=== PATIENT | female | born 1940 | race Caucasian/White ===

== ENCOUNTER 2017-03-07 20:26 | Emergency (ER) | payer MEDICAID, MEDICARE ==
[~2017-03-07] VITALS: Ht 170.2 cm; Wt 86.4 kg
[~2017-03-07 20:26] MED LIST: ASPI81 PO; DSS100 PO; HALO1 PO; HYDR25TA PO; LISI-662 PO; METO50 PO; SIMV-261 PO
[2017-03-07] MEDS ORDERED: ACETAMINOPHEN 325 MG TABLET PO ONE (22:15)
[2017-03-08 00:29] VITALS: BP 146/89
== END 2017-03-08 00:28 | disposition home or self-care (01) ==
LOC: EMS 20:29
DX: S70.01XA Contusion of right hip, initial encounter (principal); W18.30XA Fall on same level, unspecified, initial encounter; Y93.89 Activity, other specified; Y92.89 Other specified places as the place of occurrence of the external cause; Y99.8 Other external cause status
CPT/HCPCS: 73502; 99284

== ENCOUNTER 2017-03-23 17:49 | Inpatient (IN) | payer MEDICARE ==
[2017-03-23] MEDS ORDERED: MAGNESIUM SULFATE 2 GM in DEXTROSE 5%-WATER 50 ML IV PRN (18:45)
[2017-03-23] MEDS ORDERED: POTASSIUM CHL 10 MEQ/WATER 50 ML IV PRN (18:45)
[2017-03-23] MEDS ORDERED: MAGNESIUM OXIDE 400 MG TABLET PO PRN (18:45)
[2017-03-23] MEDS ORDERED: MAGNESIUM SULFATE 4 GM/WATER 100 ML IV PRN (18:45)
[2017-03-23] MEDS ORDERED: POTASSIUM CHLORIDE 20 MEQ ER TABLET PO PRN (18:45)
[2017-03-23 18:49] VITALS: BP 178/134
[2017-03-23 19:51] VITALS: BP 185/93
[2017-03-23] MEDS: MEMANTINE HCL 5 MG TABLET PO SCH (20:04)
[2017-03-23] MEDS: DIVALPROEX SODIUM 125 MG DR TABLET PO SCH (20:04)
[2017-03-23] MEDS: METOPROLOL TARTRATE 50 MG TABLET PO SCH (20:05)
[2017-03-23] MEDS: IBUPROFEN 800 MG TABLET PO SCH (20:05)
[2017-03-23] MEDS: DOCUSATE SODIUM 100 MG CAPSULE PO SCH (20:05)
[2017-03-23 20:29] LABS: BASOPHILS % (AUTO) 0.5 % (0.0-2.0); EOSINOPHILS % (AUTO) 2.6 % (1.0-6.0); HEMATOCRIT 44.3 % (36-46); HEMOGLOBIN 14.9 g/dL (12.0-16.0); LYMPHOCYTES # (AUTO) 1.7 K/uL (1.0-4.8); LYMPHOCYTES % (AUTO) 19.8 % (22.0-44.0); MEAN CORPUSCULAR HEMOGLOBIN 30.6 pg (26.0-34.0); MEAN CORPUSCULAR HGB CONC 33.6 G/dL (31.0-37.0); MEAN CORPUSCULAR VOLUME 91 fL (80-100); MONOCYTES # (AUTO) 0.6 K/uL (0.1-1.0); MONOCYTES % (AUTO) 7.7 % (2.0-9.0); NEUTROPHILS # (AUTO) 5.8 K/uL (1.8-7.7); NEUTROPHILS % (AUTO) 69.4 % (40.0-70.0); PLATELET COUNT (AUTO) 225 K/uL (150-450); RED BLOOD CELL COUNT(AUTO) 4.85 MIL/uL (4.00-5.20); RED CELL DISTRIBUTION WIDTH 12.9 % (11.5-14.5); WHITE BLOOD COUNT (AUTO) 8.4 K/uL (4.5-11.0)
[2017-03-23 20:41] LABS: ALBUMIN 3.4 g/dL (3.4-5.0); ANION GAP 8 mmol/L (8-16); CALCIUM, TOTAL 9.2 mg/dL (8.8-10.5); CARBON DIOXIDE 30 mmol/L (22-29); CHLORIDE 104 mmol/L (98-107); CREATININE 1.14 mg/dL (0.60-1.30); GLOMERULAR FILTR. RATE CALC 46 mL/min (>60); PHOSPHORUS 3.4 mg/dL (2.5-4.9); POTASSIUM 3.8 mmol/L (3.5-5.1); SODIUM SERUM 142 mmol/L (136-145); THYROID STIMULATING HORMONE 0.51 uIU/mL (0.36-3.74); UREA NITROGEN, BLOOD 18 mg/dL (7-18)
[2017-03-23 21:15] VITALS: BP 166/92
[2017-03-23 21:20] LABS: CREATINE KINASE MB < 0.5 ng/mL (0-5)
[2017-03-23] MEDS: LISINOPRIL 20 MG TABLET PO SCH (22:44)
[2017-03-23 23:01] VITALS: BP 153/87
[2017-03-24 01:52] LABS: APPEARANCE,URINE CLOUDY (CLEAR); GLUCOSE, URINE (UA) NEGATIVE (NEGATIVE); KETONES,URINE NEGATIVE (NEGATIVE); LEUKOCYTE ESTERASE ,URINE TRACE (NEGATIVE); OCCULT BLOOD,URINE NEGATIVE (NEGATIVE); PROTEIN,URINE NEGATIVE (NEGATIVE)
[2017-03-24 02:39] LABS: RBC,URINE 0-2 /HPF (0-2)
[2017-03-24 02:40] LABS: AMORPHOUS SEDIMENT,UR Few /LPF (None Seen); SQUAMOUS EPITHELIAL CELL,UR Rare /LPF (None Seen)
[2017-03-24 04:00] VITALS: BP 152/95
[2017-03-24 07:28] VITALS: BP 140/84
[2017-03-24] MEDS: IBUPROFEN 800 MG TABLET PO SCH ×3 (08:28→20:21)
[2017-03-24] MEDS: HYDROCHLOROTHIAZIDE 25 MG TABLET PO SCH (08:28)
[2017-03-24] MEDS: METOPROLOL TARTRATE 50 MG TABLET PO SCH ×2 (08:29→20:21)
[2017-03-24] MEDS: PANTOPRAZOLE SODIUM 40 MG DR TABLET PO SCH (08:29)
[2017-03-24] MEDS: ATORVASTATIN CALCIUM 40 MG TABLET PO SCH (08:29)
[2017-03-24] MEDS: TOLTERODINE TARTRATE 2 MG ER CAPSULE PO SCH (08:29)
[2017-03-24] MEDS: LISINOPRIL 20 MG TABLET PO SCH (08:29)
[2017-03-24] MEDS: ASPIRIN 81 MG CHEWABLE TABLET PO SCH (08:30)
[2017-03-24] MEDS: CHOLECALCIFEROL (VIT D3) 1,000 UNITS TABLET PO SCH (08:30)
[2017-03-24] MEDS: DOCUSATE SODIUM 100 MG CAPSULE PO SCH ×2 (08:30→20:21)
[2017-03-24] MEDS: MEMANTINE HCL 5 MG TABLET PO SCH ×2 (08:30→20:20)
[2017-03-24] MEDS ORDERED: LISINOPRIL 20 MG TABLET PO SCH (09:00)
[2017-03-24] MEDS ORDERED: CHOLECALCIFEROL (VIT D3) 1,000 UNITS TABLET PO SCH (09:00)
[2017-03-24] MEDS: CALCIUM CARBONATE 500 MG CHEWABLE TABLET CHEW SCH ×2 (10:04→20:20)
[2017-03-24 11:48] VITALS: BP 120/74
[2017-03-24 15:10] VITALS: BP 122/79
[2017-03-24 19:55] VITALS: BP 105/60
[2017-03-24] MEDS: DIVALPROEX SODIUM 125 MG DR TABLET PO SCH (20:20)
[2017-03-25] VITALS: BP 135/87
[2017-03-25 05:10] VITALS: BP 140/71
[2017-03-25] MEDS ORDERED: ALENDRONATE SODIUM 70 MG TABLET PO SCH (06:30)
[2017-03-25 07:40] VITALS: BP 138/72
[2017-03-25] MEDS: DOCUSATE SODIUM 100 MG CAPSULE PO SCH ×2 (08:24→20:24)
[2017-03-25] MEDS: PANTOPRAZOLE SODIUM 40 MG DR TABLET PO SCH (08:24)
[2017-03-25] MEDS: IBUPROFEN 800 MG TABLET PO SCH ×3 (08:24→20:24)
[2017-03-25] MEDS: CALCIUM CARBONATE 500 MG CHEWABLE TABLET CHEW SCH ×2 (08:25→20:23)
[2017-03-25] MEDS: HYDROCHLOROTHIAZIDE 25 MG TABLET PO SCH (08:25)
[2017-03-25] MEDS: TOLTERODINE TARTRATE 2 MG ER CAPSULE PO SCH (08:25)
[2017-03-25] MEDS: ASPIRIN 81 MG CHEWABLE TABLET PO SCH (08:25)
[2017-03-25] MEDS: LISINOPRIL 20 MG TABLET PO SCH (08:26)
[2017-03-25] MEDS: CHOLECALCIFEROL (VIT D3) 1,000 UNITS TABLET PO SCH (08:26)
[2017-03-25] MEDS: ATORVASTATIN CALCIUM 40 MG TABLET PO SCH (08:26)
[2017-03-25] MEDS: MEMANTINE HCL 5 MG TABLET PO SCH ×2 (08:27→20:24)
[2017-03-25] MEDS: METOPROLOL TARTRATE 50 MG TABLET PO SCH ×2 (08:42→20:24)
[2017-03-25 12:29] VITALS: BP 142/84
[2017-03-25 19:44] VITALS: BP 155/95
[2017-03-25] MEDS: DIVALPROEX SODIUM 125 MG DR TABLET PO SCH (20:23)
[2017-03-25 21:14] LABS: APPEARANCE,URINE CLOUDY (CLEAR); GLUCOSE, URINE (UA) NEGATIVE (NEGATIVE); KETONES,URINE NEGATIVE (NEGATIVE); LEUKOCYTE ESTERASE ,URINE TRACE (NEGATIVE); OCCULT BLOOD,URINE NEGATIVE (NEGATIVE); PH,URINE 5.5 (5.0-8.0); PROTEIN,URINE NEGATIVE (NEGATIVE)
[2017-03-25 21:31] LABS: SQUAMOUS EPITHELIAL CELL,UR Few /LPF (None Seen)
[2017-03-25 21:33] LABS: RBC,URINE 0-2 /HPF (0-2)
[2017-03-25 23:40] VITALS: BP 157/90
[2017-03-26 04:55] VITALS: BP 135/78
[2017-03-26 07:43] VITALS: BP 137/82
[2017-03-26 08:03] VITALS: BP 158/87
[2017-03-26] MEDS: DOCUSATE SODIUM 100 MG CAPSULE PO SCH (08:42)
[2017-03-26] MEDS: LISINOPRIL 20 MG TABLET PO SCH (08:43)
[2017-03-26] MEDS: MEMANTINE HCL 5 MG TABLET PO SCH (08:43)
[2017-03-26] MEDS: CALCIUM CARBONATE 500 MG CHEWABLE TABLET CHEW SCH (08:43)
[2017-03-26] MEDS: HYDROCHLOROTHIAZIDE 25 MG TABLET PO SCH (08:43)
[2017-03-26] MEDS: CHOLECALCIFEROL (VIT D3) 1,000 UNITS TABLET PO SCH (08:44)
[2017-03-26] MEDS: ASPIRIN 81 MG CHEWABLE TABLET PO SCH (08:44)
[2017-03-26] MEDS: METOPROLOL TARTRATE 50 MG TABLET PO SCH (08:44)
[2017-03-26] MEDS: ATORVASTATIN CALCIUM 40 MG TABLET PO SCH (08:44)
[2017-03-26] MEDS: TOLTERODINE TARTRATE 2 MG ER CAPSULE PO SCH (08:44)
[2017-03-26] MEDS: IBUPROFEN 800 MG TABLET PO SCH ×2 (08:45→15:54)
[2017-03-26] MEDS: PANTOPRAZOLE SODIUM 40 MG DR TABLET PO SCH (08:47)
[2017-03-26 11:42] VITALS: BP 140/85
[2017-03-26 15:46] VITALS: BP 131/74
== END 2017-03-26 17:32 | DRG 305 ==
LOC: 6N 18:10
PROVIDERS: ADMIT Internal Medicine; ATTEND Internal Medicine
DX: I10 Essential (primary) hypertension (principal); F03.91 Unspecified dementia, unspecified severity, with behavioral disturbance; R26.81 Unsteadiness on feet; E78.5 Hyperlipidemia, unspecified; M15.9 Polyosteoarthritis, unspecified; M81.0 Age-related osteoporosis without current pathological fracture; R29.6 Repeated falls; Z79.82 Long term (current) use of aspirin; Z79.899 Other long term (current) drug therapy
CPT/HCPCS: 70450; 83735; 84100; 84443; 87086; 97162; 97165; 97530

== ENCOUNTER 2018-05-09 19:39 | Inpatient (IN) | payer MEDICARE ==
[2018-05-09 20:10] VITALS: BP 138/76
[2018-05-09] MEDS: DOCUSATE SODIUM 100 MG CAPSULE PO SCH (21:19)
[2018-05-09] MEDS: SIMVASTATIN 40 MG TABLET PO SCH (21:19)
[2018-05-09] MEDS: METOPROLOL TARTRATE 50 MG TABLET PO SCH (21:19)
[2018-05-09] MEDS ORDERED: ONDANSETRON HCL 4 MG/2 ML VIAL IVP PRN (22:45)
[2018-05-09] MEDS ORDERED: ZOLPIDEM TARTRATE 5 MG TABLET PO PRN (22:45)
[2018-05-10] VITALS (7 sets, daily range): BP systolic 97–155; BP diastolic 67–91
[2018-05-10 08:11] LABS: BASOPHILS % (AUTO) 1.2 % (0.0-2.0); EOSINOPHILS % (AUTO) 4.1 % (1.0-6.0); HEMATOCRIT 48.5 % (36-46); HEMOGLOBIN 16.3 g/dL (12.0-16.0); LYMPHOCYTES # (AUTO) 1.8 K/uL (1.0-4.8); LYMPHOCYTES % (AUTO) 26.1 % (22.0-44.0); MEAN CORPUSCULAR HEMOGLOBIN 29.9 pg (26.0-34.0); MEAN CORPUSCULAR HGB CONC 33.6 G/dL (31.0-37.0); MEAN CORPUSCULAR VOLUME 89 fL (80-100); MONOCYTES # (AUTO) 0.7 K/uL (0.1-1.0); MONOCYTES % (AUTO) 10.2 % (2.0-9.0); NEUTROPHILS % (AUTO) 58.4 % (40.0-70.0); PLATELET COUNT (AUTO) 155 K/uL (150-450); RED BLOOD CELL COUNT(AUTO) 5.45 MIL/uL (4.00-5.20); RED CELL DISTRIBUTION WIDTH 14.3 % (11.5-14.5)
[2018-05-10] MEDS: HYDROCHLOROTHIAZIDE 25 MG TABLET PO SCH (08:12)
[2018-05-10] MEDS: PANTOPRAZOLE SODIUM 40 MG/VIAL IVP SCH (08:12)
[2018-05-10] MEDS: DOCUSATE SODIUM 100 MG CAPSULE PO SCH ×2 (08:12→20:45)
[2018-05-10] MEDS: ASPIRIN 81 MG CHEWABLE TABLET PO SCH (08:12)
[2018-05-10] MEDS: HALOPERIDOL 1 MG TABLET PO SCH (08:12)
[2018-05-10] MEDS: METOPROLOL TARTRATE 50 MG TABLET PO SCH ×2 (08:12→23:49)
[2018-05-10] MEDS: LISINOPRIL 20 MG TABLET PO SCH (08:12)
[2018-05-10 08:55] LABS: CALCIUM, TOTAL 9.2 mg/dL (8.8-10.5); CREATININE 0.97 mg/dL (0.60-1.30); MAGNESIUM 2.2 mg/dL (1.80-2.40); THYROID STIMULATING HORMONE 0.61 uIU/mL (0.36-3.74)
[2018-05-10] MEDS ORDERED: LORazepam 2 MG/ML VIAL IVP PRN (09:15)
[2018-05-10 11:51] LABS: APPEARANCE,URINE CLOUDY (CLEAR); BILIRUBIN,URINE NEGATIVE (NEGATIVE); GLUCOSE, URINE (UA) NEGATIVE (NEGATIVE); KETONES,URINE NEGATIVE (NEGATIVE); LEUKOCYTE ESTERASE ,URINE NEGATIVE (NEGATIVE); NITRATE,URINE NEGATIVE (NEGATIVE); OCCULT BLOOD,URINE LARGE (NEGATIVE); PH,URINE 6.5 (5.0-8.0); PROTEIN,URINE NEGATIVE (NEGATIVE)
[2018-05-10 11:54] LABS: WBC,URINE None Seen /HPF (0-5)
[2018-05-10 11:55] LABS: BACTERIA,URINE Many /HPF (None Seen); SQUAMOUS EPITHELIAL CELL,UR Moderate /LPF (None Seen)
[2018-05-10] MEDS: CIPROFLOXACIN HCL 250 MG TABLET PO SCH (20:45)
[2018-05-10] MEDS: SIMVASTATIN 40 MG TABLET PO SCH (20:45)
[2018-05-11 04:15] VITALS: BP 132/74
[2018-05-11 08:00] VITALS: BP 103/55
[2018-05-11] MEDS: CIPROFLOXACIN HCL 250 MG TABLET PO SCH ×2 (09:16→20:23)
[2018-05-11] MEDS: HALOPERIDOL 1 MG TABLET PO SCH (09:16)
[2018-05-11] MEDS: LISINOPRIL 20 MG TABLET PO SCH (09:19)
[2018-05-11] MEDS: DOCUSATE SODIUM 100 MG CAPSULE PO SCH ×2 (09:19→20:23)
[2018-05-11] MEDS: PANTOPRAZOLE SODIUM 40 MG/VIAL IVP SCH (09:19)
[2018-05-11] MEDS: ASPIRIN 81 MG CHEWABLE TABLET PO SCH (09:19)
[2018-05-11] MEDS: METOPROLOL TARTRATE 50 MG TABLET PO SCH ×2 (09:19→20:23)
[2018-05-11] MEDS: HYDROCHLOROTHIAZIDE 25 MG TABLET PO SCH (09:20)
[2018-05-11 12:00] VITALS: BP 100/51
[2018-05-11 16:00] VITALS: BP 114/73
[2018-05-11 20:01] VITALS: BP 115/64
[2018-05-11] MEDS: SIMVASTATIN 40 MG TABLET PO SCH (20:23)
[2018-05-11 23:53] VITALS: BP 100/60
[2018-05-12 04:35] VITALS: BP 105/58
[2018-05-12 08:15] VITALS: BP 105/51
[2018-05-12] MEDS: PANTOPRAZOLE SODIUM 40 MG/VIAL IVP SCH (09:00)
[2018-05-12 12:54] VITALS: BP 112/60
[2018-05-12] MEDS: METOPROLOL TARTRATE 50 MG TABLET PO SCH (13:23)
[2018-05-12] MEDS: LISINOPRIL 20 MG TABLET PO SCH (13:23)
[2018-05-12] MEDS: ASPIRIN 81 MG CHEWABLE TABLET PO SCH (13:23)
[2018-05-12] MEDS: DOCUSATE SODIUM 100 MG CAPSULE PO SCH (13:23)
[2018-05-12] MEDS: CIPROFLOXACIN HCL 250 MG TABLET PO SCH (13:23)
[2018-05-12] MEDS: HALOPERIDOL 1 MG TABLET PO SCH (13:24)
[2018-05-12] MEDS: HYDROCHLOROTHIAZIDE 25 MG TABLET PO SCH (13:24)
[2018-05-12 15:57] VITALS: BP 115/56
== END 2018-05-12 17:40 | DRG 690 ==
LOC: 6N 19:45
PROVIDERS: ADMIT Internal Medicine; ATTEND Internal Medicine
DX: N39.0 Urinary tract infection, site not specified (principal); E86.0 Dehydration; I10 Essential (primary) hypertension; E78.00 Pure hypercholesterolemia, unspecified; E03.9 Hypothyroidism, unspecified; Z86.73 Personal history of transient ischemic attack (TIA), and cerebral infarction without residual deficits; F03.90 Unspecified dementia, unspecified severity, without behavioral disturbance, psychotic disturbance, mood disturbance, and anxiety; Z79.82 Long term (current) use of aspirin
CPT/HCPCS: 83735; 84443; 87086; 97162; 97166; 97530; 97535; C9113; G0378; J2060